=== PATIENT | male | born 1950 | race Caucasian/White ===

== ENCOUNTER → 2016-07-16 | Outpatient (CLI) | payer OTHER ==
[2016-05-27 11:00] VITALS: BP 131/67
[~2016-07-16] MED LIST: ATOR20TA58 PO; CALC200T36 PO; CHOL20003 PO; CYAN100031 PO; DOCU-27 PO; FISH1CAP PO; GABA800T2 PO; INSU100V13 SQ; INSU100V31 SQ; INSU100V8 SQ; LEVO88TA4 PO; LISI2.5T PO; METF10002 PO; METH-38 PO; MULT-658 PO; OMEP40CA5 PO; OXYC-323 PO; OXYC1TAB7 PO
--- NOTE | 2016-07-16 15:40 | KCIC ---
PROCEDURE MRI lumbar spine without contrast. HISTORY Radiculopathy. Left leg pain and weakness. Previous surgeries, most recently in May. TECHNIQUE Sagittal T1, sagittal T2, sagittal STIR, axial T1, and axial T2 sequences are provided. COMPARISON April 15, 2016. FINDINGS There are findings of decompression noted at L2-L3 and L3-L4. Decompression also is noted at L5-S1. Posterior elements of L4 are probably intact. There is no change in alignment, slight retrolisthesis at L1-L2, L2-L3 and L5-S1. There is no worrisome marrow lesion. A few small Schmorl's nodes are again noted. Disc desiccation is again noted. Mild narrowing of disc height at L5-S1 is noted. Probable subcutaneous seroma is re-demonstrated, 11 centimeters craniocaudal by 1 centimeter transverse by 2 centimeters AP, slightly decreased in the AP dimension and slightly increased in the craniocaudal dimension. The conus medullaris is normal in signal intensity and in position. The numbering system assumes 5 lumbar type vertebral bodies. Findings by individual level are as follows: L1-L2: Disc bulge and facet and ligamentum flavum hypertrophy are noted. There is fluid in the facet joints. Midline AP diameter of the thecal sac is mildly narrowed to 10-11 millimeters. There is mild foraminal narrowing. L2-L3: There is a diffuse disc bulge. Left foraminal herniation is re-demonstrated. Facet hypertrophy is noted. Thecal sac measures 10-11 millimeters AP. Lateral recess narrowing is noted bilaterally. Foraminal narrowing is [id number]. L3-L4: There is a diffuse disc bulge and a right paracentral protrusion again noted. Facet hypertrophy is greater on the left. Midline AP diameter of the thecal sac is 10-11 millimeters. Lateral recess narrowing is noted bilaterally, greater on the right. Foraminal narrowing bilaterally is [id number]. L4-L5: Disc bulge and facet hypertrophy are noted. Facet hypertrophy is greater on the left. There is lateral recess narrowing, severe on the left. Midline AP diameter of the thecal sac is 12 millimeters. Foraminal narrowing is at least moderate bilaterally. Foraminal narrowing may be minimally increased from prior. L5-S1: Disc osteophyte complex and facet hypertrophy are noted. There is no canal stenosis post decompression. Thecal sac is diminutive at this level. Facet hypertrophy is greater on the left. There is left lateral recess narrowing. Foraminal narrowing is high-grade on the left and mild to moderate on the right. IMPRESSION 1. Postsurgical changes of decompression at L2-L3, L3-L4, and L5-S1. 2. Postoperative presumed subcutaneous seroma in the midline again noted. 3. Degenerative disc disease and facet hypertrophy throughout the lumbar spine, relatively stable compared to March. Foraminal narrowing at L4-L5 appears slightly increased from prior. Electronically signed by: Renato Reddy MD (Jul 16, 2016 15:39:07)
== END | disposition home or self-care (01) ==
LOC: KCIC MRI 13:41
PROVIDERS: ATTEND Neurological Surgery
DX: M54.16 Radiculopathy, lumbar region (principal)
CPT/HCPCS: 72148

== ENCOUNTER → 2016-08-04 | Outpatient (CLI) | payer OTHER ==
[2016-05-27 11:00] VITALS: BP 131/67
--- NOTE | 2016-08-05 04:12 | PAIN ---
DATE OF SERVICE: 08/04/2016 CHIEF COMPLAINT: Low back and left lower extremity pain. HISTORY OF PRESENT ILLNESS: This is a 66-year-old male who presents with a history of pain in the low back and left leg for about 9 months, increasing after recent surgery in 05/2016 just a few months ago with good results initially, but after about 4-5 weeks, the pain began to return in the low back, left leg, radiating to the left anterior thigh, medial thigh, medial lower leg in a radicular fashion across the low back as well bilaterally. The patient reports the pain is constant, sharp, throbbing, intermittent in intensity, worse with activity, standing, walking, sitting is better, lying down is better to a point, but still awakens him from sleep occasionally, not every night. The patient reports the pain does not affect his bowel or bladder control, but does significantly affect his ability to walk. He is occasionally using a cane in his left hand, but does not have one with him today. The patient has had some physical therapy in the past, is doing some exercises that he was taught with the previous surgeries, and stretching and strengthening, and trying to walk every day, but the pain is becoming more impeding on the way he is able to exercise ____ doing this over the past 3 to 4 weeks. The patient reports that the dull pain is alternating with strong pain in the left thigh radiating again to the medial lower leg and knee and more of an aching dull pain across the low back. The patient reports his disability rate of 0 to 10, 10 being the worst, 8 with family and home responsibilities, recreation, occupation and life support activities, 5 with social activity, 10 with sexual behavior and 0 with self-care activities. The patient is taking hydrocodone which he reports does help about 50%, is taking that since last month. The patient reports no complete loss of motor function, but significant pain and weakness with ambulation and standing in the left leg greater than the right. CURRENT MEDICATIONS: Include insulin, metformin, atorvastatin, omeprazole, methocarbamol, vitamins, fish oil, calcium, lisinopril, gabapentin, levothyroxine, vitamin B12, Levemir, and Centrum vitamins. ALLERGIES: THE PATIENT IS ALLERGIC TO LATEX, LEATHER DYE, YELLOW DYE, CINNAMON AND CODEINE. PAST MEDICAL HISTORY: Significant for diabetes, COPD, cigarette smoking, quit 20 years ago, history of sleep apnea, congestive heart failure, gastroesophageal reflux, Martinez's esophagus, peripheral neuropathy, arthritis, and bone spurs. PREVIOUS SURGERY: Include lumbar surgeries x 4, most recently in May 2015 and 2015 with spinal stenosis, previous bilateral knee replacements 2009, appendectomy, varicocele repair, tonsillectomy, pericardial window, and lap band procedure. FAMILY HISTORY: Significant for diabetes and cancer. SOCIAL HISTORY: The patient drinks about one alcoholic drink a month on average, does not smoke, quit 20 years ago. He is and lives with his spouse in [place], [place] and is currently retired. REVIEW OF SYSTEMS: The patient's review of systems is positive for those items mentioned in history of present illness. All systems were reviewed and otherwise negative. It is complete, full and well documented on the patient's chart. VITAL SIGNS: The patient's blood pressure 148/50, pulse 83, respirations 18, temperature 97.5 degrees Fahrenheit, height 5 feet 10 inches, and weight 327 pounds. GENERAL: The patient is awake, alert, oriented, appropriate, very pleasant demeanor. HEENT: Head shows normocephalic, atraumatic. Extraocular movements are intact and symmetrical. Oral cavity shows mucous membranes moist and pink. Dentition is intact. NECK: Shows anterior throat supple without palpable lymphadenopathy noted. Swallow reflex is symmetrical. The patient's neck shows good rotational motion both laterally greater than 45 degrees closer to 90 degrees without difficulty, right and left full extension, full forward flexion. CHEST: Shows normal on inspection. Breath sounds are clear to auscultation bilaterally. HEART: Shows S1 and S2 clear. No murmurs are auscultated. ABDOMEN: Obese, soft, nontender, and nondistended. No palpable organomegaly is noted. No rebound or guarding demonstrated. BACK: Shows spine grossly midline. Slight exaggeration of thoracic kyphosis, normal cervical lordotic curvature and some significant flattening noticed with lumbar lordotic curvature on inspection. Previously well-healed surgical scar is noted in the lumbar distribution. Lumbar paraspinous musculature shows symmetrical in appearance with palpation. He is moderately tender bilaterally diffusely with palpation, but without specific trigger points radiation or other abnormalities and is tender throughout the upper, middle and lower distribution of the paraspinous muscles bilaterally. The patient's sacrum and sacroiliac regions are nontender to palpation. The patient shows good rotational motion of the lumbar spine, both laterally greater than 10 degrees right and left as well as extension greater than 10 degrees, forward flexion at 45 degrees without significant pain reported. EXTREMITIES: The patient's lower extremities showed deep tendon reflexes 1+. The patellar and tendo calcaneus tendons are equal. Motor exam is strong with 5/5 dorsiflexion, extension, quadriceps and hamstring flexion. Peripheral pulses are 1+ posterior tibial and dorsalis pedis pulses. No peripheral edema is noted. No clubbing, no cyanosis. Lower extremities are warm and dry to touch, equal in color and appearance. Straight leg raise noted to be positive on the left at about 45 degrees leg raise with pain radiating into the lateral and anterior thigh and medial thigh and knee on the left side was decreased with knee flexion and but not completely relieved. Right side is negative. Gaenslen's and Tony's maneuvers are grossly negative bilaterally. The patient is able to stand. He has difficultly trying to stand on his toes as he loses his balance when putting all his weight on his left foot, walks with a slight shuffling gait, appears to favor the left lower extremity, again has no assistive devices present with him today. IMPRESSION: 1. This is a 66-year-old male with long history of low back pain and radicular pain in left lower extremity, now worse after recent surgery in 05/2016 with return of radicular symptoms in the left leg. 2. MRI scan of lumbar spine showing post-surgical changes at L2-L3, L3-L4, L5-S1 with degenerative disk disease with foraminal narrowing at L4-L5, slightly increased from prior exam of 03/2016. 3. Diabetes. 4. Chronic obstructive pulmonary disease. 5. Arthritis. PLAN: Options were discussed with the patient including conservative medical management, physical therapy, interventional techniques and he would like to pursue interventional techniques. We will wait for preauthorization on a caudal approach epidural steroid injection. I will have the patient return once this is obtained and proceed at that time. We will try Medrol Dosepak in the meantime. The patient was given instruction as well as side effects to be aware of with the medication also to maintain his physical therapy exercises, which he is doing at home as best he can to exercise as tolerated and will follow up once preauthorization is obtained for a caudal epidural steroid injection. VERA RAHMAN MD DR: ARON/kyleigh JOB#: [id number] / [id number]
== END | disposition home or self-care (01) ==
LOC: PNCL 08:31
PROVIDERS: ATTEND Anesthesiology
DX: M54.16 Radiculopathy, lumbar region (principal)
CPT/HCPCS: 99214

== ENCOUNTER → 2016-08-19 | Outpatient (CLI) | payer OTHER ==
[2016-05-27 11:00] VITALS: BP 131/67
[~2016-08-19] MED LIST changes: +IOHEXOL 180 MG/ML 10 ML VIAL. ONE; +methylPREDNISolone ACETATE 40 MG/ML VIAL. ONE; +methylPREDNISolone ACETATE 80 MG/ML VIAL. ONE
--- NOTE | 2016-08-20 06:11 | PAIN ---
DATE OF SERVICE: 08/19/2016 PROGRESS NOTE FOR PAIN CLINIC DIAGNOSES: Lumbar radiculopathy with lumbar degenerative disk disease and post-lumbar laminectomy syndrome. HISTORY OF PRESENT ILLNESS: The patient is a 66-year-old male who returns for followup status post initial evaluation and preauthorization for a caudal epidural steroid injection. The patient improved, he has been approved for this with his insurance provider, returns today wishing to proceed. The patient reports still has dull and strong pain in his low back and bilateral lower extremities, worse on the left than the right in the lateral and anterior aspect of the thigh, rates it as 6 on a scale of 10. No new motor or sensory deficits, no new bowel or bladder incontinence or other complaints, but still significant pain noted in the low back and left lower extremity, across the low back and into the gluteus regions bilaterally. PHYSICAL EXAMINATION: VITAL SIGNS: The patient's blood pressure 152/53, pulse 98, respirations 18, temperature 97.9 degrees Fahrenheit. Height 5 feet 10 inches, weight is 320 pounds. GENERAL: The patient is awake, alert, oriented, appropriate, very pleasant demeanor. HEENT: Head shows normocephalic, atraumatic. Extraocular movements are intact, symmetrical. The patient wears eyeglasses. Oral cavity, mucous membranes are moist and pink. Dentition is intact. The patient has full mansfield and moustache. NECK: Shows anterior throat is supple without palpable lymphadenopathy noted. Swallow reflex is symmetrical. CHEST: Shows normal on inspection. Breath sounds are clear to auscultation bilaterally. HEART: Shows S1 and S2 clear. ABDOMEN: Obese, soft, nontender, nondistended. BACK: Shows spine grossly midline. Well-healed surgical scars noted in the lumbar distribution. Lumbar paraspinous muscle shows some moderate tenderness. It is firm, but normal in muscle girth with diffuse tenderness throughout the middle and lower distributions. No radiation of pain, no tenderness over the sacrum or sacroiliac regions. EXTREMITIES: Lower extremities showed deep tendon reflexes 1+ in the patellar and tendocalcaneus tendons are equal. Motor exam is strong with 5/5 dorsiflexion and extension bilaterally as well as quadriceps and hamstring flexion bilaterally. PLAN: Options were discussed with the patient. We planned to proceed with a caudal epidural steroid injection today; however, once the procedure was beginning and the patient was placed in prone position, he had significant pain in the abdomen as well as in the chest from positioning, was having difficulty breathing, needed to get off of the prone position and rotated where it was unable to proceed with the procedure secondary to the patient's discomfort, also felt nauseous and warm with some vagal symptoms, and we abandoned the procedure for today. We will plan on having come back in about 2 days, try this again with some different positioning and techniques and different pads on the bed where he may be able to lie more comfortably. We discussed this in detail. The family would like to do that in a day or two. I will make those arrangements and have him return for the procedure at that time. VERA RAHMAN MD DR: ARON/kyleigh JOB#: [id number] / [id number]
== END | disposition home or self-care (01) ==
LOC: PNCL 08:53
PROVIDERS: ATTEND Anesthesiology
DX: M51.16 Intervertebral disc disorders with radiculopathy, lumbar region (principal); M96.1 Postlaminectomy syndrome, not elsewhere classified; E78.00 Pure hypercholesterolemia, unspecified; I10 Essential (primary) hypertension; J44.9 Chronic obstructive pulmonary disease, unspecified; E66.9 Obesity, unspecified; K21.9 Gastro-esophageal reflux disease without esophagitis; M19.90 Unspecified osteoarthritis, unspecified site; E03.9 Hypothyroidism, unspecified; Z87.39 Personal history of other diseases of the musculoskeletal system and connective tissue
CPT/HCPCS: 62323; J1030; J1040

== ENCOUNTER → 2016-08-21 | Outpatient (CLI) | payer OTHER ==
[2016-05-27 11:00] VITALS: BP 131/67
--- NOTE | 2016-08-22 03:19 | PAIN ---
DATE OF SERVICE: 08/21/2016 DIAGNOSIS: Lumbar radiculopathy with lumbar degenerative disease and post-lumbar laminectomy syndrome. HISTORY OF PRESENT ILLNESS: The patient is a 66-year-old male who returns for followup status post attempted caudal epidural steroid injection 2 days ago. The patient got very vagal and we abandoned the procedure without accomplishing it. The patient returns today reporting still significant pain in the low back and to the hips and left lower extremity greater than right. The patient reports no new motor or sensory deficits, no new changes, has been feeling back to his normal self over the past 2 days ____ dull aching pain rated 2-3 on a scale of 10 in the low back without significant change. The patient reports no new motor or sensory deficits. No new bowel or bladder incontinence or other complaints. PHYSICAL EXAMINATION: VITAL SIGNS: The patient's blood pressure 146/55, pulse is 91, respirations 18, temperature 97.3 degrees fahrenheit. Height is 5 feet 10 inches, weight is 320 pounds. GENERAL: The patient is awake, alert and oriented, appropriate, very pleasant demeanor. HEENT: Head shows normocephalic, atraumatic. Extraocular movements are intact and symmetrical. Oral cavity shows mucous membranes are moist and pink. Dentition is intact. NECK: Shows anterior throat supple without palpable lymphadenopathy noted. Swallow reflex is symmetrical. CHEST: Shows normal on inspection. Breath sounds are clear bilaterally. HEART: Shows S1 and S2 clear. ABDOMEN: Obese, soft, nontender and nondistended. BACK: Shows spine grossly midline. Lumbar paraspinous muscle shows some moderate tenderness and well-healed surgical scar noted once again without radiation. EXTREMITIES: Lower extremities show deep tendon reflexes at 1+ in the patellar, and tendo-calcaneus tendons are equal. Motor exam remains strong with dorsiflexion and extension rated at 5 out of 5 and equal Options were discussed with the patient. The patient's old chart was reviewed and his current medication regimen updated. His current review of systems updated today as well. We will proceed with a caudal approach epidural steroid injection. Today is the first in the series with fluoroscopic guidance. Risk again discussed including but not limited to bleeding, infection, possibility of epidural hematoma and subsequent neurological compromise, dural puncture, headaches, spinal cord and/or nerve damage, side effects of steroid medication and poor results regarding pain control. The patient understands and wishes to proceed. The patient will return to clinic in approximately 2 weeks for followup, was counseled on return appointment, activity level, and side effects to be aware of. DIAGNOSIS: Lumbar radiculopathy with lumbar degenerative disk disease and post-lumbar laminectomy syndrome. PROCEDURE: Caudal epidural steroid injection using C-arm fluoroscopic guidance, under sterile prep and drape and using local anesthetic. Medication injected is 120 mg of Depo-Medrol plus 10 mL of preservative-free normal saline and 2 mL of Isovue for contrast. CONDITION AT DISCHARGE: Stable. The patient tolerated procedure well, had no complications. VERA RAHMAN MD DR: ARON/kyleigh JOB#: [id number] / [id number]
== END | disposition home or self-care (01) ==
LOC: PNCL 09:46
PROVIDERS: ATTEND Anesthesiology
DX: M51.16 Intervertebral disc disorders with radiculopathy, lumbar region (principal); M96.1 Postlaminectomy syndrome, not elsewhere classified; I10 Essential (primary) hypertension; E78.00 Pure hypercholesterolemia, unspecified; J44.9 Chronic obstructive pulmonary disease, unspecified; E66.9 Obesity, unspecified; Z72.89 Other problems related to lifestyle; E03.9 Hypothyroidism, unspecified; E11.9 Type 2 diabetes mellitus without complications; K21.9 Gastro-esophageal reflux disease without esophagitis; Z87.39 Personal history of other diseases of the musculoskeletal system and connective tissue; M19.90 Unspecified osteoarthritis, unspecified site; Z96.653 Presence of artificial knee joint, bilateral
CPT/HCPCS: 62323; J1030; J1040; 62327

== ENCOUNTER 2016-09-25 10:21 | Emergency (ER) | payer OTHER ==
[~2016-09-25] VITALS: Ht 177.8 cm; Wt 142.9 kg
[~2016-09-25 10:21] MED LIST changes: -IOHEXOL 180 MG/ML 10 ML VIAL. ONE; -methylPREDNISolone ACETATE 40 MG/ML VIAL. ONE; -methylPREDNISolone ACETATE 80 MG/ML VIAL. ONE
--- NOTE | 2016-09-25 10:30 | PHYS DOC ---
Past Medical History Past Medical History: CHF, COPD, Diabetes-Type II, Hypertension Past Surgical History: Knee Replacement, Other Additional Past Surgical Histo: Lamenectomy 3x, Lap band, pericardial window, bilateral knee, veins on test Alcohol Use: Rarely Drug Use: None Adult General Chief Complaint Chief Complaint: DIZZY/LIGHT HEADED HPI HPI Patient is a 66 year old male who presents with. He was at Dr. Yeboah 's office being evaluated for his urinary leakage when he started feeling the room spinning around and around. He states this happened 2 or 3 times before over the last 2 years and has never been evaluated for it. He states the only reason he came here today with his Dr. Yeboah made him. He denies any focal neurological deficits such as weakness in his arms legs the numbness or tingling , headache, chest discomfort or abdominal pain. He denies any blurry vision. Review of Systems Review of Systems Constitutional: Denies fever or chills [] Eyes: Denies change in visual acuity, redness, or eye pain [] HENT: Denies nasal congestion or sore throat [] Respiratory: Denies cough or shortness of breath [] Cardiovascular: No additional information not addressed in HPI [] GI: Denies abdominal pain, nausea, vomiting, bloody stools or diarrhea [] : Denies dysuria or hematuria [] Musculoskeletal: Denies back pain or joint pain [] Integument: Denies rash or skin lesions [] Neurologic: Denies headache, focal weakness or sensory changes, positive for dizziness/vertigo-type symptoms Endocrine: Denies polyuria or polydipsia [] Current Medications Current Medications Current Medications Medications (Trade) Dose Ordered Sig/Luis A Start Time Stop Time Status Last Admin Dose Admin Meclizine HCl (Antivert) 25 mg 1X ONCE 09/25/16 11:45 09/25/16 11:46 Allergies Allergies Allergies Coded Allergies Type Severity Reaction Last Updated Verified cinnamon Allergy Severe blisters 05/26/16 Yes codeine Allergy Severe headache, tolerates Percocet,Morphine 05/26/16 Yes latex Allergy Severe Rash 05/26/16 Yes yellow dye Allergy Intermediate Rash 05/26/16 Yes paraben Adverse Reaction Intermediate Rash 05/26/16 Yes Uncoded Allergies Type Severity Reaction Last Updated Verified fungicide Adverse Reaction Intermediate Rash 05/19/16 Physical Exam Physical Exam Constitutional: Well developed, well nourished, no acute distress, non-toxic appearance. [] HENT: Normocephalic, atraumatic, bilateral external ears normal, oropharynx moist, no oral exudates, nose normal. [] Eyes: PERRLA, EOMI, conjunctiva normal, no discharge. [] Neck: Normal range of motion, no tenderness, supple, no stridor. [] Cardiovascular:Heart rate regular rhythm, no murmur [] Lungs & Thorax: Bilateral breath sounds clear to auscultation [] Abdomen: Bowel sounds normal, soft, no tenderness, no masses, no pulsatile masses. [] Skin: Warm, dry, no erythema, no rash. [] Back: No tenderness, no CVA tenderness. [] Extremities: No tenderness, no cyanosis, no clubbing, ROM intact, no edema. [] Neurologic: Alert and oriented X 3, normal motor function, normal sensory function, no focal deficits noted. Ambulates with a steady gait. Psychologic: Affect normal, judgement normal, mood normal. [] Current Patient Data Vital Signs Vital Signs Date Time Temp Pulse Resp B/P Pulse Ox O2 Delivery O2 Flow Rate FiO2 09/25/16 10:21 97.6 82 20 112/57 91 Room Air 97.6 Lab Values Laboratory Tests Test 09/25/16 10:27 09/25/16 10:52 Glucose (Fingerstick) 180mg/dL (70-99) H White Blood Count 6.3x10^3/uL (4.0-11.0) Red Blood Count 3.67x10^6/uL (4.30-5.70) L Hemoglobin 11.6g/dL (13.0-17.5) L Hematocrit 33.7% (39.0-53.0) L Mean Corpuscular Volume 92fL (79-100) Mean Corpuscular Hemoglobin 32pg (25-35) Mean Corpuscular Hemoglobin Concent 35g/dL (31-37) Red Cell Distribution Width 13.7% (11.5-14.5) Platelet Count 243x10^3/uL (140-400) Neutrophils (%) (Auto) 59% (31-73) Lymphocytes (%) (Auto) 24% (24-48) Monocytes (%) (Auto) 13% (0-9) H Eosinophils (%) (Auto) 4% (0-3) H Basophils (%) (Auto) 1% (0-3) Neutrophils # (Auto) 3.7x10^3uL (1.8-7.7) Lymphocytes # (Auto) 1.5x10^3/uL (1.0-4.8) Monocytes # (Auto) 0.8x10^3/uL (0.0-1.1) Eosinophils # (Auto) 0.3x10^3/uL (0.0-0.7) Basophils # (Auto) 0.1x10^3/uL (0.0-0.2) Sodium Level 145mmol/L (136-145) Potassium Level 4.7mmol/L (3.5-5.1) Chloride Level 109mmol/L (98-107) H Carbon Dioxide Level 28mmol/L (21-32) Anion Gap 8 (6-14) Blood Urea Nitrogen 40mg/dL (8-26) H Creatinine 1.4mg/dL (0.7-1.3) H Estimated GFR (Cockcroft-Gault) 50.7 BUN/Creatinine Ratio 29 (6-20) H Glucose Level 202mg/dL (70-99) H Calcium Level 9.5mg/dL (8.5-10.1) Total Bilirubin 0.7mg/dL (0.2-1.0) Aspartate Amino Transferase (AST) 22U/L (15-37) Alanine Aminotransferase (ALT) 35U/L (16-63) Alkaline Phosphatase 155U/L (46-116) H Total Protein 6.3g/dL (6.4-8.2) L Albumin 3.1g/dL (3.4-5.0) L Albumin/Globulin Ratio 1.0 (1.0-1.7) Laboratory Tests 09/25/16 10:52 Laboratory Tests 09/25/16 10:52 EKG EKG [] Radiology/Procedures Radiology/Procedures [facility] [address] [place] [address] IMAGING REPORT Signed PATIENT: KOFFI FIGUEROA ACCOUNT: [id number] : 1950 LOCATION: ER AGE: 66 SEX: M EXAM STATUS: PRE ER ORD. PHYSICIAN: YARITZA BARRY MD REASON: dizziness PROCEDURE: CT HEAD WO CONTRAST CT head without contrast History: Dizziness. Comparison: CT head 10/19/2007. Procedure: Axial images are obtained of the head from the skull base through the vertex without IV contrast. One or more of the following individualized dose reduction techniques were utilized for the study: Automated exposure control Adjustment of mA and/or kV according to patient's size Use of iterative reconstruction technique. Findings: The ventricles and sulci are normal for the patient's age. No mass-effect, intracranial mass, midline shift, hemorrhage or obvious acute infarction is identified. Basilar cisterns are patent. Bone windows demonstrate no significant calvarial abnormality. The visualized paranasal sinuses appear clear. Impression: No acute intracranial process. Please note that CT can be relatively insensitive to acute ischemic infarction for up to 24 hours after symptom onset. DICTATED and SIGNED BY: RAFA AGUILAR MD DATE: 09/25/16 1116 CC: YARITZA BARRY MD; KRZYSZTOF STEIN ~ Impressions: Dizziness-resolved Course & Med Decision Making Course & Med Decision Making Pertinent Labs and Imaging studies reviewed. (See chart for details) Labs show any acute abnormalities. CT of his head is also nonacute. He is able to ambulate without any difficulties and his neuro exam is nonacute. This sounds like it could be vertigo symptoms very intermittent and resolved on its own. He is instructed to follow-up with his primary care physician, return back to ER if his dizziness returns, he has any other focal neurological deficits or other concerns. He is being discharged meclizine 25 mg every 8 hours when necessary dizziness. The patient's agreeable Plan B discharged in stable condition at this time. Dragon Disclaimer Dragon Disclaimer This electronic medical record was generated, in whole or in part, using a voice recognition dictation system. Departure Departure Impression: Primary Impression: Dizzy Disposition: 01 HOME, SELF-CARE Condition: STABLE Referrals: KRZYSZTOF STEIN (PCP) Patient Instructions: Dizziness Additional Instructions: Uric CAT scan of the head and your labs do not show any acute abnormalities. You might be slightly dehydrated and drinking a few extra glasses of water today might make you feel better. If her dizziness returns you can take meclizine 25 mg every 6 hours as needed. You need to follow up with primary care physician within the next few days. Return ER for worsening dizziness, focal neurological deficits such as weakness in your arm or leg, trouble speaking or for any other concerns. Scripts Meclizine Hcl 25 Mg Tablet1 Tab PO TID #90 TAB Prov:YARITZA BARRY MD 09/25/16 YARITZA BARRY MD Sep 25, 2016 10:30
[2016-09-25 10:59] LABS: BASO # 0.1 x10^3/uL (0.0-0.2); BASO % 1 % (0-3); EOS % 4 % (0-3); HEMATOCRIT 33.7 % (39.0-53.0); HEMOGLOBIN 11.6 g/dL (13.0-17.5); LYMPH # 1.5 x10^3/uL (1.0-4.8); LYMPH % 24 % (24-48); MEAN CORPUSCULAR HEMOGLOBIN 32 pg (25-35); MEAN CORPUSCULAR HGB CONC 35 g/dL (31-37); MEAN CORPUSCULAR VOLUME 92 fL (79-100); MONO % 13 % (0-9); NEUT % 59 % (31-73); PLATELET COUNT 243 x10^3/uL (140-400); RED BLOOD COUNT 3.67 x10^6/uL (4.30-5.70); RED CELL DISTRIBUTION WIDTH 13.7 % (11.5-14.5); WHITE BLOOD COUNT 6.3 x10^3/uL (4.0-11.0)
[2016-09-25 11:15] LABS: CALCIUM 9.5 mg/dL (8.5-10.1); CREATININE 1.4 mg/dL (0.7-1.3); GFR 50.7; POTASSIUM 4.7 mmol/L (3.5-5.1)
--- NOTE | 2016-09-25 11:21 | RAD ---
CT head without contrast History: Dizziness. Comparison: CT head 10/19/2007. Procedure: Axial images are obtained of the head from the skull base through the vertex without IV contrast. One or more of the following individualized dose reduction techniques were utilized for the study: Automated exposure control Adjustment of mA and/or kV according to patient's size Use of iterative reconstruction technique. Findings: The ventricles and sulci are normal for the patient's age. No mass-effect, intracranial mass, midline shift, hemorrhage or obvious acute infarction is identified. Basilar cisterns are patent. Bone windows demonstrate no significant calvarial abnormality. The visualized paranasal sinuses appear clear. Impression: No acute intracranial process. Please note that CT can be relatively insensitive to acute ischemic infarction for up to 24 hours after symptom onset.
[2016-09-25 11:32] LABS: ALBUMIN 3.1 g/dL (3.4-5.0); TOTAL BILIRUBIN 0.7 mg/dL (0.2-1.0); TOTAL PROTEIN 6.3 g/dL (6.4-8.2)
[2016-09-25] MEDS ORDERED: MECL25TA3 PO (11:43)
[2016-09-25] MEDS ORDERED: MECLIZINE HCL 12.5 MG TABLET. PO ONE (11:45)
[2016-09-25 12:30] VITALS: BP 109/64
== END 2016-09-25 12:30 | disposition home or self-care (01) ==
LOC: ER 10:21
DX: R42 Dizziness and giddiness (principal); J44.9 Chronic obstructive pulmonary disease, unspecified; I11.0 Hypertensive heart disease with heart failure; I50.9 Heart failure, unspecified; E11.9 Type 2 diabetes mellitus without complications; Z88.1 Allergy status to other antibiotic agents; Z91.041 Radiographic dye allergy status; Z91.040 Latex allergy status; Z88.5 Allergy status to narcotic agent; Z88.8 Allergy status to other drugs, medicaments and biological substances; Z91.018 Allergy to other foods
CPT/HCPCS: 36415; 70450; 80053; 82947; 85027; 99285; J8597

== ENCOUNTER → 2016-10-20 | Outpatient (CLI) | payer OTHER ==
[2016-09-25 12:30] VITALS: BP 109/64
[~2016-10-20] MED LIST changes: +MECL25TA3 PO; +METF-620 PO; -METF10002 PO
--- NOTE | 2016-10-20 12:11 | KCIC ---
INDICATION: BPH with valuation for hydronephrosis COMPARISON: None TECHNIQUE: Ultrasound images obtained of the bilateral kidneys. FINDINGS: No gross hydronephrosis of the right kidney. No gross hydronephrosis of the left kidney. Bladder decompressed Prostate is not well seen on this exam. IMPRESSION: No gross hydronephrosis. Electronically signed by: Kieran Pziano (October 20, 2016 12:10:07)
== END | disposition home or self-care (01) ==
LOC: KCIC US 10:38
PROVIDERS: ATTEND Urology
DX: N40.0 Benign prostatic hyperplasia without lower urinary tract symptoms (principal)
CPT/HCPCS: 76770

== ENCOUNTER → 2017-08-27 | Outpatient (CLI) | payer OTHER ==
[2017-08-27] MEDS: GADOBUTROL 7.5 MMOL/7.5 ML VIAL IV ×2 (12:08)
[2017-08-27 12:09] LABS: ISTAT CREATININE 1.2 mg/dL (0.7-1.3)
== END | disposition home or self-care (01) ==
LOC: KCIC MRI 11:15
DX: M51.16 Intervertebral disc disorders with radiculopathy, lumbar region (principal); M51.36 Other intervertebral disc degeneration, lumbar region
CPT/HCPCS: 72158; 82565; A9585

== ENCOUNTER → 2017-10-15 | Outpatient (CLI) | payer OTHER | END | disposition home or self-care (01) | LOC: PNCL 07:48 | DX: M51.16 Intervertebral disc disorders with radiculopathy, lumbar region (principal); M48.07 Spinal stenosis, lumbosacral region; R53.83 Other fatigue | CPT/HCPCS: G0463 ==

== ENCOUNTER → 2017-11-03 | Outpatient (CLI) | payer OTHER ==
[~2017-11-03] MED LIST changes: -ATOR20TA58 PO; -CALC200T36 PO; -CHOL20003 PO; -CYAN100031 PO; -DOCU-27 PO; -FISH1CAP PO; -GABA800T2 PO; -INSU100V13 SQ; -INSU100V31 SQ; -INSU100V8 SQ; +IOHEXOL 180 MG/ML 10 ML VIAL.; -LEVO88TA4 PO; -LISI2.5T PO; -MECL25TA3 PO; -METF-620 PO; -METH-38 PO; -MULT-658 PO; -OMEP40CA5 PO; -OXYC-323 PO; -OXYC1TAB7 PO; +methylPREDNISolone ACETATE 40 MG/ML VIAL.; +methylPREDNISolone ACETATE 80 MG/ML VIAL.
== END | disposition home or self-care (01) ==
LOC: PNCL 09:59
DX: M51.16 Intervertebral disc disorders with radiculopathy, lumbar region (principal); M96.1 Postlaminectomy syndrome, not elsewhere classified; E03.9 Hypothyroidism, unspecified; J44.9 Chronic obstructive pulmonary disease, unspecified; K21.9 Gastro-esophageal reflux disease without esophagitis; E78.00 Pure hypercholesterolemia, unspecified; E11.42 Type 2 diabetes mellitus with diabetic polyneuropathy; I11.0 Hypertensive heart disease with heart failure; I50.9 Heart failure, unspecified; G47.33 Obstructive sleep apnea (adult) (pediatric); Z98.84 Bariatric surgery status; Z90.49 Acquired absence of other specified parts of digestive tract; E66.9 Obesity, unspecified; M19.90 Unspecified osteoarthritis, unspecified site; Z96.653 Presence of artificial knee joint, bilateral; Z72.89 Other problems related to lifestyle; M48.061 Spinal stenosis, lumbar region without neurogenic claudication; F17.200 Nicotine dependence, unspecified, uncomplicated; Z83.79 Family history of other diseases of the digestive system; Z83.3 Family history of diabetes mellitus; Z80.0 Family history of malignant neoplasm of digestive organs; Z82.49 Family history of ischemic heart disease and other diseases of the circulatory system; Z91.040 Latex allergy status; Z91.018 Allergy to other foods; Z88.5 Allergy status to narcotic agent; Z88.8 Allergy status to other drugs, medicaments and biological substances
CPT/HCPCS: 62323; J1030; J1040; Q9965

== ENCOUNTER → 2017-11-25 | Outpatient (CLI) | payer OTHER | END | disposition home or self-care (01) | LOC: PNCL 09:22 | DX: M51.16 Intervertebral disc disorders with radiculopathy, lumbar region (principal) | CPT/HCPCS: G0463 ==

== ENCOUNTER → 2017-12-09 | Outpatient (CLI) | payer OTHER ==
[~2017-12-09] MED LIST changes: +LIDOCAINE 1% PF 2 ML VIAL.
== END ==
LOC: PNCL 09:55
DX: M51.16 Intervertebral disc disorders with radiculopathy, lumbar region (principal); M96.1 Postlaminectomy syndrome, not elsewhere classified; G62.9 Polyneuropathy, unspecified; I50.9 Heart failure, unspecified; E78.00 Pure hypercholesterolemia, unspecified; I10 Essential (primary) hypertension; J44.9 Chronic obstructive pulmonary disease, unspecified; K22.70 Barrett's esophagus without dysplasia; E03.9 Hypothyroidism, unspecified; E11.9 Type 2 diabetes mellitus without complications; G47.30 Sleep apnea, unspecified; Z98.890 Other specified postprocedural states; E66.9 Obesity, unspecified; K21.9 Gastro-esophageal reflux disease without esophagitis; M19.90 Unspecified osteoarthritis, unspecified site; Z96.653 Presence of artificial knee joint, bilateral; Z83.3 Family history of diabetes mellitus; Z82.49 Family history of ischemic heart disease and other diseases of the circulatory system; Z82.5 Family history of asthma and other chronic lower respiratory diseases; Z80.0 Family history of malignant neoplasm of digestive organs
CPT/HCPCS: 62323; J1030; J1040; Q9965

== ENCOUNTER → 2017-12-24 | Outpatient (CLI) | payer OTHER | END | disposition home or self-care (01) | LOC: PNCL 09:29 | DX: M51.16 Intervertebral disc disorders with radiculopathy, lumbar region (principal); I11.0 Hypertensive heart disease with heart failure; I50.9 Heart failure, unspecified; E11.42 Type 2 diabetes mellitus with diabetic polyneuropathy; E78.5 Hyperlipidemia, unspecified; E03.9 Hypothyroidism, unspecified; J44.9 Chronic obstructive pulmonary disease, unspecified; K21.9 Gastro-esophageal reflux disease without esophagitis | CPT/HCPCS: G0463 ==

== ENCOUNTER → 2018-03-03 | Outpatient (CLI) | payer OTHER ==
[~2018-03-03] MED LIST changes: +ATOR10TA60 PO; +ATOR20TA58 PO; +ATOR40TA59 PO; +CALC-614 PO; +CHOL20009 PO; +CYAN100031 PO; +DOCU-109 PO; +FISH1CAP PO; +GABA800T2 PO; +INSU100V13 SQ; +INSU100V31 SQ; +INSU100V8 SQ; -IOHEXOL 180 MG/ML 10 ML VIAL.; +LEVO88TA4 PO; -LIDOCAINE 1% PF 2 ML VIAL.; +LISI-130 PO; +LISI2.5T PO; +MECL25TA3 PO; +METF10007 PO; +METH-38 PO; +MULT-658 PO; +OMEP40CA5 PO; +OXYC-323 PO; +OXYC1TAB7 PO; +TAMS0.4C2 PO; -methylPREDNISolone ACETATE 40 MG/ML VIAL.; -methylPREDNISolone ACETATE 80 MG/ML VIAL.
--- NOTE | 2018-03-03 20:58 | PAIN ---
DATE OF SERVICE: 03/03/2018 PROGRESS NOTE DIAGNOSES: Lumbar radiculopathy with lumbar degenerative disk disease and post-lumbar laminectomy syndrome. HISTORY OF PRESENT ILLNESS: The patient is a 67-year-old male who returns for followup status post spinal cord stimulator temporary lead placement x 2 approximately 1 week ago. The patient returns and we have been in touch with him over the week with very good decrease in pain by at least 75%-80%. The patient reports overall he rated at about a 50% reduction completely but still doing much better. The patient reports a 70%-80% improvement after the first 4 or 5 days and then about 50% in the last 1-2 days as speaking with has [employer] representative, did have one of the leads connectivity fail about a day and a half ago. The patient reports otherwise did very well and reports his pain as a 6 on a scale 10 at its worst, 4 on average and 3 at its least and is a 3 today. The patient reports aching, constant pain across the low back in the lower extremities as it was previously but only minimally at this time. The patient reports no difficulty with lying down. Sitting and sleeping much better and increased activity with walking, especially. PHYSICAL EXAMINATION: VITAL SIGNS: Today, his blood pressure is 146/54, pulse 79, respirations 18, temperature 97.8 degrees Fahrenheit, height 5 feet 10 inches and weight is 324 pounds. GENERAL: The patient is awake, alert, oriented, appropriate and very pleasant demeanor. BACK: The patient's back shows well-bandaged spinal cord stimulator leads with bandage was just taken down, intact. No drainage, no erythema and no tenderness. Sutures were sterilely cut and the spinal cord stimulator leads were removed with the tips intact x 2. Site clean and dry. No erythema and no drainage. This was washed and then sterilely bandaged. The patient reports a significant decrease in pain and would like to proceed with a permanent stimulator system. We will make the arrangements for this in the meantime. The patient will follow up once these arrangements are made and we will proceed from there. VERA RAHMAN MD DR: ARON/kyleigh JOB#: [id number] / [id number]
== END | disposition home or self-care (01) ==
LOC: PNCL 14:13
PROVIDERS: ATTEND Anesthesiology
DX: M51.16 Intervertebral disc disorders with radiculopathy, lumbar region (principal); M96.1 Postlaminectomy syndrome, not elsewhere classified; I11.0 Hypertensive heart disease with heart failure; I50.9 Heart failure, unspecified; E11.9 Type 2 diabetes mellitus without complications; E78.00 Pure hypercholesterolemia, unspecified; E03.9 Hypothyroidism, unspecified; J44.9 Chronic obstructive pulmonary disease, unspecified; K21.9 Gastro-esophageal reflux disease without esophagitis; Z90.49 Acquired absence of other specified parts of digestive tract; Z91.018 Allergy to other foods; Z88.1 Allergy status to other antibiotic agents; Z88.5 Allergy status to narcotic agent; Z88.8 Allergy status to other drugs, medicaments and biological substances; Z82.49 Family history of ischemic heart disease and other diseases of the circulatory system; Z83.79 Family history of other diseases of the digestive system; Z80.0 Family history of malignant neoplasm of digestive organs; Z83.3 Family history of diabetes mellitus; Z82.5 Family history of asthma and other chronic lower respiratory diseases
CPT/HCPCS: 99212

== ENCOUNTER 2018-04-12 10:57 | Emergency (ER) | payer OTHER ==
[~2018-04-12] VITALS: Ht 177.8 cm; Wt 142.9 kg
[2018-04-12] MEDS ORDERED: IV NORMAL SALINE 1000ML BAG 1,000 ML IV SCH (11:32)
--- NOTE | 2018-04-12 11:40 | PHYS DOC ---
Past Medical History Past Medical History: CHF, COPD, Diabetes-Type II, Hypertension Additional Past Medical Histor: bph Past Surgical History: Appendectomy, Knee Replacement, Other Additional Past Surgical Histo: Lamenectomy 3x, Lap band, pericardi. window, bilat knee, hx of tracheo. Alcohol Use: Rarely Drug Use: None Adult General Chief Complaint Chief Complaint: ABDOMINAL PAIN HPI HPI Patient is a 68-year-old male who presents to the emergency department for evaluation. He states that he had a gradual onset of achy right flank pain on Thursday, and his pain has been gradually worsening. He states that the pain has been relatively constant. He has not had any fevers or chills. He has not had any nausea, vomiting, diarrhea, dysuria, or hematuria. Eating has not seemed to affect his pain. There are no alleviating factors to his symptoms. He has not had similar pain to this in the past. The rest of his abdomen is nontender. Movement seems to worsen his pain. Other than as stated above, there are no alleviating or exacerbating factors to his symptoms. Review of Systems Review of Systems Constitutional: Denies fever or chills [] Eyes: Denies change in visual acuity, redness, or eye pain [] HENT: Denies nasal congestion or sore throat [] Respiratory: Denies cough or shortness of breath [] Cardiovascular: The patient denies any shortness of breath, chest pain, palpitations, or orthopnea [] GI: Denies vomiting, bloody stools or diarrhea [] : Denies dysuria or hematuria [] Musculoskeletal: Denies back pain or joint pain [] Integument: Denies rash or skin lesions [] Neurologic: Denies headache, focal weakness or sensory changes [] Endocrine: Denies polyuria or polydipsia [] All other systems were reviewed and found to be within normal limits, except as documented in this note. Current Medications Current Medications Current Medications Medications (Trade) Dose Ordered Sig/Luis A Start Time Stop Time Status Last Admin Dose Admin Morphine Sulfate (Morphine Sulfate) 4 mg PRN Q15MIN PRN 04/12/18 11:45 04/13/18 11:44 04/12/18 11:59 4 MG Ondansetron HCl (Zofran) 4 mg 1X ONCE 04/12/18 12:00 04/12/18 12:01 DC 04/12/18 11:57 4 MG Sodium Chloride 1,000 ml @ 1,000 mls/hr Q1H 04/12/18 11:32 04/12/18 12:31 DC 04/12/18 11:40 1,000 MLS/HR Allergies Allergies Allergies Coded Allergies Type Severity Reaction Last Updated Verified cinnamon Allergy Severe blisters 05/26/16 Yes codeine Allergy Severe headache, tolerates Percocet,Morphine 05/26/16 Yes latex Allergy Severe Rash 05/26/16 Yes yellow dye Allergy Intermediate Rash 05/26/16 Yes paraben Adverse Reaction Intermediate Rash 05/26/16 Yes Uncoded Allergies Type Severity Reaction Last Updated Verified fungicide Adverse Reaction Intermediate Rash 05/19/16 Physical Exam Physical Exam PHYSICAL EXAM: CONSTITUTIONAL: Well developed, well nourished HEAD: normocephalic, atraumatic EENT: PERRL, EOMI. Conjunctivae normal color, sclerae non-icteric; moist mucous membranes. NECK: Supple, non-tender; no meningismus. LUNGS: Lungs CTA, breathing even and unlabored. Normal air movement. HEART: Regular rate and rhythm, no murmur CHEST: No deformity; non-tender ABDOMEN: The abdomen is soft, there is tenderness to palpation in the right flank area, and right mid and posterior abdomen., without any right upper quadrant tenderness to palpation. There is no rebound or guarding. The remainder the abdomen is soft and non-tender, no masses or bruits. Foster's sign is absent. EXTREM: Normal ROM; no deformity, no calf tenderness. Normal pulses palpable in all extremities. There is no pedal edema. SKIN: No rash; no diaphoresis NEURO: Alert; normal speech and cognition; CN's grossly intact; strength grossly intact without focal deficit. BACK: There is mild right-sided CVA TTP. Current Patient Data Vital Signs Vital Signs Date Time Temp Pulse Resp B/P (MAP) Pulse Ox O2 Delivery O2 Flow Rate FiO2 04/12/18 13:45 20 20 171/69 (103) 99 04/12/18 13:15 Room Air 04/12/18 11:05 97.5 97.5 Lab Values Laboratory Tests Test 04/12/18 11:32 04/12/18 11:40 White Blood Count 8.9 x10^3/uL (4.0-11.0) Red Blood Count 3.64 x10^6/uL (4.30-5.70) L Hemoglobin 12.1 g/dL (13.0-17.5) L Hematocrit 34.6 % (39.0-53.0) L Mean Corpuscular Volume 95 fL (79-100) Mean Corpuscular Hemoglobin 33 pg (25-35) Mean Corpuscular Hemoglobin Concent 35 g/dL (31-37) Red Cell Distribution Width 12.6 % (11.5-14.5) Platelet Count 205 x10^3/uL (140-400) Neutrophils (%) (Auto) 60 % (31-73) Lymphocytes (%) (Auto) 21 % (24-48) L Monocytes (%) (Auto) 7 % (0-9) Eosinophils (%) (Auto) 11 % (0-3) H Basophils (%) (Auto) 1 % (0-3) Neutrophils # (Auto) 5.3 x10^3uL (1.8-7.7) Lymphocytes # (Auto) 1.9 x10^3/uL (1.0-4.8) Monocytes # (Auto) 0.6 x10^3/uL (0.0-1.1) Eosinophils # (Auto) 1.0 x10^3/uL (0.0-0.7) H Basophils # (Auto) 0.1 x10^3/uL (0.0-0.2) Sodium Level 143 mmol/L (136-145) Potassium Level 5.1 mmol/L (3.5-5.1) Chloride Level 107 mmol/L (98-107) Carbon Dioxide Level 29 mmol/L (21-32) Anion Gap 7 (6-14) Blood Urea Nitrogen 33 mg/dL (8-26) H Creatinine 1.2 mg/dL (0.7-1.3) Estimated GFR (Cockcroft-Gault) 60.2 BUN/Creatinine Ratio 28 (6-20) H Glucose Level 204 mg/dL (70-99) H Calcium Level 9.3 mg/dL (8.5-10.1) Total Bilirubin 0.5 mg/dL (0.2-1.0) Aspartate Amino Transferase (AST) 42 U/L (15-37) H Alanine Aminotransferase (ALT) 73 U/L (16-63) H Alkaline Phosphatase 235 U/L (46-116) H Total Protein 6.6 g/dL (6.4-8.2) Albumin 3.2 g/dL (3.4-5.0) L Albumin/Globulin Ratio 0.9 (1.0-1.7) L Lipase 369 U/L (73-393) Urine Collection Type Unknown Urine Color Yellow Urine Clarity Clear Urine pH 5.0 Urine Specific [place] 1.025 Urine Protein 30 mg/dL (NEG-TRACE) Urine Glucose (UA) Negative mg/dL (NEG) Urine Ketones (Stick) Negative mg/dL (NEG) Urine Blood Negative (NEG) Urine Nitrite Negative (NEG) Urine Bilirubin Negative (NEG) Urine Urobilinogen Dipstick 1.0 mg/dL (0.2 mg/dL) Urine Leukocyte Esterase Trace (NEG) Urine RBC 0 /HPF (0-2) Urine WBC Rare /HPF (0-4) Urine Squamous Epithelial Cells Occ /LPF Urine Bacteria 0 /HPF (0-FEW) Urine Mucus Mod /LPF Laboratory Tests 04/12/18 11:32 Laboratory Tests 04/12/18 11:32 EKG EKG [] Radiology/Procedures Radiology/Procedures [PROCEDURE: CT ABDOMEN PELVIS WO CONTRAST PQRS Compliance Statement: One or more of the following individualized dose reduction techniques were utilized for this examination: 1. Automated exposure control 2. Adjustment of the mA and/or kV according to patient size 3. Use of iterative reconstruction technique CT ABDOMEN PELVIS WO CONTRAST Clinical Indication: RIGHT FLANK PAIN X 4 DAYS Comparison: CT abdomen and pelvis without contrast, September 28, 2015. Technique: Helical CT imaging of the abdomen and pelvis is performed without IV or oral contrast. Findings: Mild scarring in the right middle lobe. Coronary artery disease. Cardiac size normal, no pericardial effusion. The liver, gallbladder, spleen, pancreas, adrenal glands, and abdominal aorta caliber are normal. There is moderate atherosclerotic calcification. There is moderate bilateral perinephric stranding, unchanged. Tiny nonobstructing left renal calculus. There is no ureteral calculus. There is gastric lap band in appropriate position. No dilated small bowel. There is no colon wall thickening. Appendix not identified, no secondary signs of appendicitis. No abdominal adenopathy or free fluid. Urinary bladder is normal, not well distended. Coarse calcifications in the prostate, unchanged. No pelvic free fluid. Benign-appearing bilateral inguinal lymph nodes. Degenerative endplate spurring in the lumbar spine. Multilevel hemilaminotomies redemonstrated. There are old left posterior rib fractures. IMPRESSION: 1. No acute abdominal or pelvic abnormality. No obstructive uropathy. 2. Tiny nonobstructing left renal calculus. ] PROCEDURE: ABDOMEN LTD Abdominal ultrasound, 04/12/2018: HISTORY: Right upper quadrant pain The gallbladder was not visualized. No hepatic mass or bile duct dilatation is seen. The common hepatic duct is of normal caliber. The pancreas was obscured by overlying bowel. The visualized portions of the right kidney are unremarkable. IMPRESSION: 1. Nonvisualization of the gallbladder. Correlation with the current CT study shows an unusual hepatic configuration with overlying bowel presumably obscuring the gallbladder sonographically. The gallbladder showed no significant abnormality on the CT study. 2. No significant sonographic abnormality is detected. Course & Med Decision Making Course & Med Decision Making Pertinent Labs and Imaging studies reviewed. (See chart for details) [2:40 PM: The patient's condition remained stable. I discussed test results, the uncertain etiology of his symptoms, the need for close follow-up, and return precautions.] The patient states he has a history of LFT elevation, and his values are somewhat similar compared to his prior values. Dragon Disclaimer Dragon Disclaimer This electronic medical record was generated, in whole or in part, using a voice recognition dictation system. Departure Departure Impression: Primary Impression: Flank pain Disposition: 01 HOME, SELF-CARE Condition: STABLE Referrals: NON,STAFF (PCP) Patient Instructions: Flank Pain Additional Instructions: Ibuprofen 400 mg every 6 hours may help improve your symptoms. Applying a heating pad to the affected area may help improve your symptoms. The prescribed medications may cause drowsiness-use caution while taking. Scripts Cyclobenzaprine Hcl (CYCLOBENZAPRINE HCL) 10 Mg Tablet 1 TAB PO TID PRN for PAIN, #30 TAB Prov: SANTOS SILVA MD 04/12/18 SANTOS SILVA MD Apr 12, 2018 11:40
[2018-04-12 11:43] LABS: BASO # 0.1 x10^3/uL (0.0-0.2); BASO % 1 % (0-3); EOS % 11 % (0-3); HEMATOCRIT 34.6 % (39.0-53.0); HEMOGLOBIN 12.1 g/dL (13.0-17.5); LYMPH # 1.9 x10^3/uL (1.0-4.8); LYMPH % 21 % (24-48); MEAN CORPUSCULAR HEMOGLOBIN 33 pg (25-35); MEAN CORPUSCULAR HGB CONC 35 g/dL (31-37); MEAN CORPUSCULAR VOLUME 95 fL (79-100); MONO # 0.6 x10^3/uL (0.0-1.1); MONO % 7 % (0-9); NEUT # 5.3 x10^3uL (1.8-7.7); NEUT % 60 % (31-73); PLATELET COUNT 205 x10^3/uL (140-400); RED BLOOD COUNT 3.64 x10^6/uL (4.30-5.70); RED CELL DISTRIBUTION WIDTH 12.6 % (11.5-14.5); WHITE BLOOD COUNT 8.9 x10^3/uL (4.0-11.0)
[2018-04-12] MEDS ORDERED: MORPHINE SULFATE 4 MG/ML VIAL. IV/SQ PRN (11:45)
[2018-04-12 11:51] LABS: BILIRUBIN,URINE NEGATIVE (NEG); CLARITY,URINE CLEAR; COLOR,URINE YELLOW; NITRITE,URINE NEGATIVE (NEG); PROTEIN,URINE 30 mg/dL (NEG-TRACE)
[2018-04-12 11:51] LABS: CALCIUM 9.3 mg/dL (8.5-10.1); CREATININE 1.2 mg/dL (0.7-1.3); GFR 60.2; POTASSIUM 5.1 mmol/L (3.5-5.1)
[2018-04-12 11:56] LABS: ALBUMIN 3.2 g/dL (3.4-5.0); ALBUMIN/GLOBULIN RATIO 0.9 (1.0-1.7); TOTAL BILIRUBIN 0.5 mg/dL (0.2-1.0); TOTAL PROTEIN 6.6 g/dL (6.4-8.2)
[2018-04-12] MEDS ORDERED: ONDANSETRON PF 4 MG/2 ML VIAL. IV ONE (12:00)
[2018-04-12 12:14] LABS: BACTERIA,URINE 0 /HPF (0-FEW); RBC,URINE 0 /HPF (0-2); SQUAMOUS EPITHELIAL CELL,UR OCC /LPF; WBC,URINE RARE /HPF (0-4)
--- NOTE | 2018-04-12 12:16 | RAD ---
PQRS Compliance Statement: One or more of the following individualized dose reduction techniques were utilized for this examination: 1. Automated exposure control 2. Adjustment of the mA and/or kV according to patient size 3. Use of iterative reconstruction technique CT ABDOMEN PELVIS WO CONTRAST Clinical Indication: RIGHT FLANK PAIN X 4 DAYS Comparison: CT abdomen and pelvis without contrast, September 28, 2015. Technique: Helical CT imaging of the abdomen and pelvis is performed without IV or oral contrast. Findings: Mild scarring in the right middle lobe. Coronary artery disease. Cardiac size normal, no pericardial effusion. The liver, gallbladder, spleen, pancreas, adrenal glands, and abdominal aorta caliber are normal. There is moderate atherosclerotic calcification. There is moderate bilateral perinephric stranding, unchanged. Tiny nonobstructing left renal calculus. There is no ureteral calculus. There is gastric lap band in appropriate position. No dilated small bowel. There is no colon wall thickening. Appendix not identified, no secondary signs of appendicitis. No abdominal adenopathy or free fluid. Urinary bladder is normal, not well distended. Coarse calcifications in the prostate, unchanged. No pelvic free fluid. Benign-appearing bilateral inguinal lymph nodes. Degenerative endplate spurring in the lumbar spine. Multilevel hemilaminotomies redemonstrated. There are old left posterior rib fractures. IMPRESSION: 1. No acute abdominal or pelvic abnormality. No obstructive uropathy. 2. Tiny nonobstructing left renal calculus. Electronically signed by: Leonid Dawson MD (04/12/2018 12:13 PM) [id number]
--- NOTE | 2018-04-12 13:20 | RAD ---
Abdominal ultrasound, 04/12/2018: HISTORY: Right upper quadrant pain The gallbladder was not visualized. No hepatic mass or bile duct dilatation is seen. The common hepatic duct is of normal caliber. The pancreas was obscured by overlying bowel. The visualized portions of the right kidney are unremarkable. IMPRESSION: 1. Nonvisualization of the gallbladder. Correlation with the current CT study shows an unusual hepatic configuration with overlying bowel presumably obscuring the gallbladder sonographically. The gallbladder showed no significant abnormality on the CT study. 2. No significant sonographic abnormality is detected. Electronically signed by: Link Nathan MD (04/12/2018 1:17 PM) [facility]
[2018-04-12 13:45] VITALS: BP 171/69
[2018-04-12] MEDS ORDERED: CYCL10TA2 PO (14:43)
== END 2018-04-12 14:57 | disposition home or self-care (01) ==
LOC: ER 10:57
DX: R10.84 Generalized abdominal pain (principal); I11.0 Hypertensive heart disease with heart failure; I50.9 Heart failure, unspecified; J44.9 Chronic obstructive pulmonary disease, unspecified; E11.9 Type 2 diabetes mellitus without complications; Z90.49 Acquired absence of other specified parts of digestive tract; Z88.5 Allergy status to narcotic agent; Z91.040 Latex allergy status; Z88.8 Allergy status to other drugs, medicaments and biological substances; Z91.018 Allergy to other foods
CPT/HCPCS: 36415; 74176; 76705; 80053; 81001; 83690; 85025; 87086; 96374; 96375; 99285; J2270; J2405; J7030

== ENCOUNTER → 2018-06-08 | Outpatient (CLI) | payer OTHER ==
[~2018-06-08] MED LIST changes: +CYCL10TA2 PO; -GABA800T2 PO; +GABA800T3 PO; -OXYC-323 PO; +OXYC1TAB15 PO
--- NOTE | 2018-06-08 16:50 | PAIN ---
DATE OF SERVICE: 06/08/2018 PROGRESS NOTE FOR PAIN CLINIC DIAGNOSIS: Lumbar radiculopathy with lumbar degenerative disk disease and lumbar post-laminectomy syndrome. HISTORY OF PRESENT ILLNESS: The patient is a 68-year-old male who returns for followup status post spinal cord stimulator permanent placement with Dr. Julio Martinez, this was done on 04/23. The patient returns today for reprogramming and postop check. The patient reports he is doing quite well. The stimulation has been very good, until the last couple of days or so, the pain is beginning to get more noticeable in the low back. The patient reports it as a 9 on a scale of 10 at its worst, 3 on average, 0 at its least and is a 7 today. The patient reports it is tight and shooting and he has made his appointment for reprogramming as well as postop evaluation. The patient reports no difficulty with the surgery. He did quite well, was sore for about a week afterwards, but otherwise did very well with postsurgical pain. No difficulty with the stimulator placement, it is comfortable for him and the stimulation is decreasing the pain significantly, again without paresthesia with the [employer] unit. The patient reports he woke up hurting this morning and he is going to be reprogrammed with our [employer] billing representative today as well. PHYSICAL EXAMINATION: VITAL SIGNS: The patient's blood pressure is /68, pulse 77, respirations 18, temperature 98.0 degrees Fahrenheit, weight is 329 pounds. GENERAL: The patient is awake, alert, oriented, appropriate, very pleasant demeanor. HEENT: Head shows normocephalic, atraumatic. The patient wears eye glasses. Extraocular movements are intact. NECK: Shows anterior throat supple. CHEST: Shows breath sounds clear to auscultation bilaterally. HEART: Shows S1, S2 clear. BACK: Shows spine grossly in the midline. Well healed surgical scar noted in the midline and to the left of midline with a generator placement, which is nontender, but mobile. Wounds are well healed. No erythema, no discharge, no drainage. EXTREMITIES: Lower extremities show deep tendon reflexes at 1+ in the patellar and tendo-calcaneus tendons. Motor exam is approximately 4 on a scale of 5, but strong and equal with dorsiflexion and extension bilaterally without deficit. No peripheral edema is noted. Options were discussed with the patient. The patient's old chart was reviewed as his current medication regimen updated. Current review of systems updated today as well. We will have the patient undergo reprogramming today with our [employer] spinal cord stimulator rep and follow up at this time on an as needed basis. VERA RAHMAN MD DR: ARON/kyleigh JOB#: [id number] / [id number]
== END | disposition home or self-care (01) ==
LOC: PNCL 13:46
PROVIDERS: ATTEND Anesthesiology
DX: M51.16 Intervertebral disc disorders with radiculopathy, lumbar region (principal); M96.1 Postlaminectomy syndrome, not elsewhere classified; Z98.890 Other specified postprocedural states
CPT/HCPCS: 77002; G0463

== ENCOUNTER → 2020-03-15 | Outpatient (CLI) | payer MEDICARE ==
[~2020-03-15] MED LIST changes: -GABA800T3 PO; +GABA800T5 PO; +MECL-75 PO; -MECL25TA3 PO; +OMEP40CA45 PO; -OMEP40CA5 PO
--- NOTE | 2020-03-15 11:36 | KCIC ---
HAND RIGHT 3V, WRIST 3V RIGHT DATE: 03/15/2020 12:00 AM INDICATION: PAIN IN THIRD AND FOURTH FINGERS AFTER A FALL. Pain in hand and wrist after a fall 2 days ago. COMPARISON: None. FINDINGS: Bones: There is no evidence of acute fracture or dislocation. Joints: The joint spaces are normal. Miscellaneous: None. IMPRESSION: No evidence of acute fracture. Electronically signed by: Ryan Monroy MD (03/15/2020 11:32 AM) [id number]
== END | disposition home or self-care (01) ==
LOC: KCIC 08:37
PROVIDERS: ATTEND Internal Medicine
DX: M25.531 Pain in right wrist (principal); M79.641 Pain in right hand
CPT/HCPCS: 73110; 73130